=== PATIENT | female | born 1970 | race Caucasian/White ===

== ENCOUNTER 2017-04-16 08:43 | Emergency (ER) | payer BC ==
[~2017-04-16] VITALS: Ht 154.9 cm; Wt 67.7 kg
[~2017-04-16 08:43] MED LIST: INDERAL20 MG PO
[2017-04-16] MEDS ORDERED: ATARAX,VISTARIL25 MG PO (10:31)
[2017-04-16 10:41] VITALS: BP 129/76
== END 2017-04-16 11:48 | disposition home or self-care (01) ==
LOC: EME 08:43
DX: F41.0 Panic disorder [episodic paroxysmal anxiety] (principal); Z71.6 Tobacco abuse counseling; F17.200 Nicotine dependence, unspecified, uncomplicated; J45.909 Unspecified asthma, uncomplicated
CPT/HCPCS: 90832; 99281; 99283; Q0177

== ENCOUNTER 2018-04-26 14:49 | Emergency (ER) | payer BC ==
[~2018-04-26] VITALS: Ht 154.9 cm; Wt 65.5 kg
[~2018-04-26 14:49] MED LIST changes: +ATARAX,VISTARIL25 MG PO
[2018-04-26 15:53] LABS: HEMATOCRIT 41.3 % (36.0-46.0); HEMOGLOBIN 14.2 G/DL (11.9-15.5); MCHC 34.4 G/DL (30.0-36.0); MCV 87.3 FL (83-99); PLATELET COUNT 256 K/uL (156-360); RBC DIS.WIDTH-CV 12.2 % (11.8-14.6); RBC DIS.WIDTH-SD 39.7 % (39-53); RED BLOOD COUNT 4.73 M/uL (3.80-5.20); WHITE BLOOD COUNT 9.4 K/uL (4.1-10.2)
[2018-04-26 16:08] LABS: CHLORIDE 109 mEq/L (99-109); POTASSIUM 4.6 mEq/L (3.7-5.4); SODIUM 139 mEq/L (136-147)
[2018-04-26 16:11] LABS: GLUCOSE 91 mg/dL (70-99)
[2018-04-26 16:14] LABS: CREATININE 0.6 mg/dL (0.6-1.3); GFR ESTIMATE (CALCULATED) > 59 mL/min/
[2018-04-26 16:15] LABS: UREA NITROGEN (BUN) 6 mg/dL (9-23)
[2018-04-26 17:39] LABS: ALBUMIN 4.2 g/dL (3.2-4.8)
[2018-04-26 17:42] LABS: TOTAL PROTEIN 6.9 g/dL (6.4-8.3)
[2018-04-26 17:43] LABS: TOTAL BILIRUBIN 0.4 mg/dL (0.0-1.0)
[2018-04-26 17:44] LABS: ALKALINE PHOSPHATASE 74 IU/L (3-129)
[2018-04-26 17:47] LABS: ALT (GPT) 11 IU/L (3-49); AST (GOT) 13 IU/L (2-34); DIRECT BILIRUBIN 0.1 mg/dL (0.0-0.3)
[2018-04-26 17:48] LABS: LIPASE 14 U/L (1.0-51.0)
[2018-04-26 17:54] LABS: QUANTITATIVE HCG < 4.0 MIU/ML
[2018-04-26 18:40] LABS: APPEARANCE CLEAR ((CLEAR)); BILIRUBIN NEGATIVE; BLOOD NEGATIVE; COLOR STRAW ((YELLOW)); GLUCOSE (STRIP) NEGATIVE; KETONES NEGATIVE; LEUKOCYTES NEGATIVE; NITRITE NEGATIVE; PROTEIN (STRIP) NEGATIVE; SPECIFIC GRAVITY 1.003 (1.000-1.030); UCUL ADDED? NO; UROBILINOGEN 0.2 MG/DL (0.2-1.0)
[2018-04-26] MEDS ORDERED: NAPROSYN500 MG PO (23:09)
[2018-04-26] MEDS ORDERED: PERCOCET 5/31 TABLET PO (23:09)
[2018-04-26 23:24] VITALS: BP 120/80
== END 2018-04-26 23:25 | disposition home or self-care (01) ==
LOC: EME 14:49
DX: N83.202 Unspecified ovarian cyst, left side (principal); R35.0 Frequency of micturition; Z90.710 Acquired absence of both cervix and uterus; F17.200 Nicotine dependence, unspecified, uncomplicated
CPT/HCPCS: 74176; 76856; 80048; 80076; 81003; 83690; 84702; 85027; 99281; 99285; J2270; J3010; J7030